=== PATIENT | female | born 1940 | race Caucasian/White ===

== ENCOUNTER 2017-04-30 17:22 | Observation (INO) | payer MEDICARE, OTHER ==
[2017-04-30] MEDS ORDERED: Acetaminophen 325 MG Tab PO PRN (18:15)
[2017-04-30] MEDS ORDERED: 50% Dextrose in Water 50 ML Syringe IVPUSH PRN (18:22)
[2017-04-30] MEDS ORDERED: Metoprolol Tartrate 25 MG Tab PO SCH (18:30)
[2017-04-30] MEDS ORDERED: Insulin Aspart 100 Units/ML 3 ML Pen SUBCUT SCH (18:30)
[2017-04-30 18:57] LABS: CHLORIDE,CL 104 mmol/L (101-111); SODIUM,NA 139 mmol/L (135-145)
[2017-04-30] MEDS: Simvastatin 10 MG Tab PO SCH (23:08)
[2017-04-30] MEDS: Metoprolol Tartrate 25 MG Tab PO SCH (23:35)
--- NOTE | 2017-05-01 00:51 | HP ---
CHIEF COMPLAINT: Irregular heart rate. HISTORY OF PRESENTING ILLNESS: Mrs. Deborah Lujan is a 76-year-old female with medical history significant for hypertension as per the chart, dyslipidemia, type 2 diabetes mellitus, history of diverticulosis, fibrocystic disease of the breast, and renal insufficiency; was evaluated in the primary care office and also by GI doctor, Dr. Beck this afternoon. She has been following with GI consultation for possible iron deficiency anemia and for possible colonoscopy, but lately, the patient was noted to have irregular heart rate suggestive of possible atrial fibrillation, supraventricular tachycardia, and also had Holter monitor placed back in March. Again today while in the office, she was noted to have irregular heart rate with a heart rate of 120, so the patient is being admitted for atrial fibrillation. At this time, the patient denies any complaints of chest pain. No shortness of breath. No abdominal pain. No nausea. No vomiting. No diarrhea. No fevers. No chills. No cough. No sputum in the last few days. She denies any palpitations. She denies any chest pains at this time. The patient denied any history of chest pains on exertion. No history of dyspnea on exertion. No history of orthopnea or paroxysmal nocturnal dyspnea. The patient denied any history of hematemesis, hematochezia, melena, or melanotic stools. Normal bowel and bladder habits otherwise. Lately, the patient has lost her 6 months back, and she is grieving normally. REVIEW OF SYSTEMS: A complete review of system including skin, ear, nose, and throat, cardiovascular system, respiratory system, gastrointestinal system, genitourinary system, hematology, oncology, neurology, allergy, immunology, constitutional were all evaluated and were negative except for the above-said notes. PAST MEDICAL HISTORY: Significant for hypertension, hyperlipidemia, type 2 diabetes mellitus, diverticulosis, fibrocystic disease of the breast, uterovaginal prolapse in the past, renal insufficiency, history of diverticulosis. PAST SURGICAL HISTORY: Significant for endometrial biopsy, colonoscopy, ovary removal in the past. FAMILY HISTORY: Significant for colon cancer in her father. Cancer and diabetes in her sister. Colon cancer and asthma in her brother. SOCIAL HISTORY: The patient had history of smoking tobacco in the past but quit smoking many years back. No history of alcohol intake. ALLERGIES: No known drug allergies. HOME MEDICATIONS: Include: 1. Metformin 850 mg. 2. Simvastatin 40 mg daily. 3. Cozaar 25 mg daily. 4. [place]-3 fatty acids. 5. Aspirin 81 mg daily. 6. Multivitamin tablet daily. PHYSICAL EXAMINATION: Vital Signs: Temperature of 98.3, pulse of 148, blood pressure 146/58, respiratory rate of 20, saturating at 99% on room air. General Appearance: The patient is well oriented to time, place, and person. Follows commands spontaneously. Cardiovascular System: S1, S2 heard with normal intensity. No gallops. Respiratory: Clear to auscultation bilaterally. No wheeze. No crepitations. Abdomen: Soft. Bowel sounds positive. Nontender. No rigidity. Extremities: No edema to bilateral lower extremities. Neurology: No gross focal neurological deficits. LABS: Include total bilirubin 0.7, direct bilirubin 0.2, AST 19, ALT 21, total protein 7.3. Iron 12, ferritin 5, iron saturation 3. Hemoglobin 9.6, hematocrit 30, WBC 7.2, platelet count 179. ASSESSMENT: 1. Atrial fibrillation now in normal sinus rhythm. 2. Hypertension. 3. Hyperlipidemia. 4. Type 2 diabetes mellitus. PLAN: 1. Atrial fibrillation. The patient was noted to have supraventricular tachycardia and possible atrial fibrillation with rapid ventricular response while in the clinic, but after getting admitted to the hospital, switched back to normal sinus rhythm consistent with possible paroxysmal atrial fibrillation. She is noted to have occasional PVCs at this time. The patient noted not to be on any beta-kitty or calcium channel kitty. We will start her on metoprolol 25 mg twice a day for better rate control. We would not initiate any anticoagulation as the workup for iron deficiency anemia has not been completed, unsure if the patient has a GI source of bleed, so we would not start her on active anticoagulation with Coumadin. She is on baby aspirin. We will continue the same. The patient was explained about the diagnostic findings and treatment plans which she understands and verbalized the same. 2. Hypertension. Noted to have elevated blood pressure. We will start her on metoprolol 25 mg twice a day and further titrate the medication. We will closely monitor in the telemetry unit. 3. Type 2 diabetes mellitus. The patient usually takes metformin at home. We will check her fingersticks with each meal. Have her on supplemental scale insulin as needed for additional coverage of her blood glucose. 4. Hyperlipidemia. The patient is currently on Zocor. Continue the same. 5. The patient recently had a 2D echocardiogram on April 24 which showed good ejection fraction of 60% to 65% with grade 1 diastolic dysfunction, and the left atrium is borderline dilated secondary to mild mitral regurgitation which could possibly cause supraventricular tachycardia at this time. Closely follow. 6. Code status. The patient wants to be full code. 7. Discussed with Dr. Beck, transferring physician regarding the plan of care. Reviewed the labs and medications. Reviewed the old charts. Discussed with family members. [facility] /[id number]
[2017-05-01] MEDS: Losartan 25 MG Tab PO SCH (09:32)
[2017-05-01] MEDS: Aspirin 81 MG Tab.EC PO SCH (09:32)
[2017-05-01] MEDS: Metoprolol Tartrate 25 MG Tab PO SCH ×2 (09:32→22:05)
[2017-05-01] MEDS ORDERED: Metoprolol Tartrate 25 MG Tab PO SCH (09:49)
[2017-05-01 10:56] LABS: CHLORIDE,CL 103 mmol/L (101-111); SODIUM,NA 134 mmol/L (135-145)
[2017-05-01] MEDS ORDERED: Metoprolol Tartrate 25 MG Tab PO ONE (11:15)
--- NOTE | 2017-05-01 12:57 | PN ---
DATE: 05/01/2017 SUBJECTIVE: Mrs. Deborah Lujan is a 76-year-old female with medical history significant for hypertension, hyperlipidemia, type 2 diabetes mellitus, and iron- deficiency anemia, admitted to the hospital with episodes of paroxysmal atrial fibrillation with rapid ventricular response. For the last 24 hours, the patient is closely monitored in the telemetry unit. She remained in normal sinus rhythm. We started on metoprolol 25 mg twice a day requiring further dose adjustment of the medications. She denies any chest pain. No shortness of breath. No abdominal pain. No nausea. No vomiting. No diarrhea. No palpitations. REVIEW OF SYSTEMS: Cardiovascular, respiratory, gastrointestinal, neurology, constitutional were all evaluated. PHYSICAL EXAMINATION: Vital Signs: Temperature of 97.4, pulse of 74, blood pressure 164/62, respiratory rate of 16, and saturating at 97% on room air. General Appearance: Patient is well oriented to time, place, and person. Follows commands spontaneously. Cardiovascular System: S1, S2 heard with normal intensity. No gallops. Respiratory System: Clear to auscultation bilaterally. No wheeze. No crepitations. Abdomen: Soft. Bowel sounds positive. Nontender. No rigidity. Extremities: No edema bilateral lower extremities. Neurology: No gross focal neurological deficit. MEDICATIONS: Reviewed. 1. Tylenol 650 mg every 4 hours as needed for pain and fever. 2. Aspirin 81 mg daily. 3. Ciprofloxacin 500 mg twice a day. 4. NovoLog supplemental scale. 5. Cozaar 25 mg daily. 6. Magnesium oxide 500 mg twice a day. 7. Metoprolol 50 mg twice a day, changed from 25 mg twice a day. 8. Zocor 20 mg at bedtime. LABORATORY DATA: Sodium 134, potassium 4.3, chloride 103, bicarb 26, BUN 16, creatinine 0.7, and glucose 216. Urinalysis suggesting large leukocytes, 20-30 wbc's and rare bacteria. Magnesium 1.6. Troponin less than 0.02. INR 1. ASSESSMENT: 1. Paroxysmal atrial fibrillation with rapid ventricular response, now in normal sinus rhythm. 2. Hypertension. 3. Hyperglycemia. 4. Type 2 diabetes mellitus. 5. Hyperlipidemia. PLAN: 1. Atrial fibrillation. The patient was noted to be in paroxysmal atrial fibrillation and rate seems to be well controlled. For now, she is back to normal sinus rhythm. We added metoprolol 25 mg twice a day, increase it to 50 mg twice a day for better control of the blood pressure. She was also noted to have hypomagnesemia requiring magnesium supplement. Closely follow the patient. 2. Hypertension, uncontrolled. The patient noted to have elevated blood pressure. We were titrating her medications. Increase the metoprolol to 50 twice a day. We will closely follow in the telemetry unit. 3. Type 2 diabetes mellitus, uncontrolled. The patient was noted to be on metformin at home. We have her on supplemental scale insulin while here. We will resume the metformin when she is more stable. 4. Hyperlipidemia. Continue with statin for now. 5. Possible discharge in a.m. if she remains hemodynamically stable. The patient is advised to walk around. 6. Iron-deficiency anemia. This will be worked up as an outpatient. The patient is scheduled for possible colonoscope and endoscope, but given her possible supraventricular tachycardia with possible paroxysmal atrial fibrillation and a controlled rate, the patient is being titrated on the medication to optimize her heart rate prior to this procedure. 7. Discussed with family members at bedside. [facility] /[id number]
[2017-05-01] MEDS: Ciprofloxacin 500 MG Tab PO SCH ×2 (13:17→22:04)
[2017-05-01] MEDS: METFORMIN 850 MG PO SCH ×2 (16:58→16:59)
[2017-05-01] MEDS: FISH OIL 1200 MG PO SCH (16:58)
[2017-05-01] MEDS: Insulin Aspart 100 Units/ML 3 ML Pen SUBCUT SCH ×2 (18:15→21:58)
[2017-05-01] MEDS: Simvastatin 10 MG Tab PO SCH (22:05)
[2017-05-02] MEDS: Insulin Aspart 100 Units/ML 3 ML Pen SUBCUT SCH ×2 (08:35→11:57)
[2017-05-02] MEDS: Aspirin 81 MG Tab.EC PO SCH (08:36)
[2017-05-02] MEDS: Losartan 25 MG Tab PO SCH (08:36)
[2017-05-02] MEDS: Metoprolol Tartrate 25 MG Tab PO SCH (08:36)
[2017-05-02] MEDS: Ciprofloxacin 500 MG Tab PO SCH (08:36)
[2017-05-02] MEDS: METFORMIN 850 MG PO SCH ×2 (08:37→11:56)
[2017-05-02] MEDS: FISH OIL 1200 MG PO SCH (08:37)
[2017-05-02 11:38] VITALS: BP 106/89
--- NOTE | 2017-05-02 16:56 | DISCH ---
ADMITTING DIAGNOSIS: Atrial fibrillation with rapid ventricular response. DISCHARGE DIAGNOSES: 1. Paroxysmal atrial fibrillation, now in normal sinus rhythm. 2. Hypertension, uncontrolled. 3. Hypomagnesemia. 4. Possible urinary tract infection. HISTORY OF PRESENTING ILLNESS: Mrs. Deborah Lujan is a 76-year-old female with medical history significant for hypertension, hyperlipidemia, type 2 diabetes mellitus, history of diverticulosis, fibrocystic disease of the breast, was initially evaluated by Dr. Beck for iron-deficiency anemia, and while in the clinic, the patient was noted to have supraventricular tachycardia with possible paroxysmal atrial fibrillation with rapid ventricular response, and so was admitted to the hospital for further evaluation and treatment. After getting admitted to the hospital, the patient was kept on telemetry unit and she remained in normal sinus rhythm during this stay. The patient denied any ongoing chest pains. Her troponins were negative. She was noted to have hypomagnesemia, requiring magnesium oxide supplement. She was also noted to have possible urinary tract infection, so she was empirically started on oral antibiotic with ciprofloxacin. She responded well to the treatment. She was noted to have uncontrolled hypertension, so we started on metoprolol and increased it to 50 mg twice a day, after which her blood pressure was much controlled. She was noted to be on aspirin. We could not start her on active anticoagulation at this juncture as there was suspicion for GI bleed leading to iron-deficiency anemia, so the patient will be further evaluated with a colonoscope and endoscope, and if there is no source of bleeding, then she would be advised to be started on anticoagulation either with Coumadin or the newer agents. She remained hemodynamically stable on this admission. She is discharged home in stable condition. DISCHARGE MEDICATIONS: Include: 1. Aspirin 81 mg daily. 2. Ciprofloxacin 500 mg twice a day for 5 days. 3. Fish oil 1200 mg daily. 4. Cozaar 25 mg daily. 5. Magnesium oxide 500 mg for next 7 days. 6. Metoprolol 50 mg twice a day. 7. Simvastatin 20 mg at bedtime. 8. Metformin 850 mg 3 times a day. PHYSICAL EXAMINATION: Vital Signs: On the day of discharge, vitals; temperature of 98, pulse of 63, blood pressure 150/59, respiratory rate of 20, saturating at 98% on room air. General Appearance: The patient is well oriented to time, place, and person. Follows commands spontaneously. Cardiovascular System: S1, S2 heard with normal intensity. No gallops. Respiratory System: Clear to auscultation bilaterally. No wheeze. No crepitations. Abdomen: Soft. Bowel sounds positive. Nontender. No rigidity. Extremities: No edema in bilateral lower extremities. Neurology: No gross focal neurological deficits. CONDITION ON ADMISSION: Poor. CONDITION ON DISCHARGE: Stable. DISPOSITION: Discharged to home. DIET: Cardiac healthy diet. ACTIVITY: As tolerated. FOLLOWUP: Follow up with primary care physician in the next 1 to 2 weeks of time and to follow with Dr. Beck as scheduled. The patient was explained about changes in her medications. Spent over 35 minutes of time in evaluating and treating this patient and making discharge plans. [facility] /[id number]
== END 2017-05-02 13:15 | disposition home or self-care (01) ==
LOC: UNDOADMOB 17:45 → DL.MS 17:45 → INTOOBSV 17:45 → DL.MS 18:15
PROVIDERS: ADMIT Internal Medicine; ATTEND Internal Medicine
DX: I48.0 Paroxysmal atrial fibrillation (principal); I10 Essential (primary) hypertension; E83.42 Hypomagnesemia; E11.9 Type 2 diabetes mellitus without complications; Z79.82 Long term (current) use of aspirin; Z79.899 Other long term (current) drug therapy; Z79.84 Long term (current) use of oral hypoglycemic drugs; Z98.890 Other specified postprocedural states; Z87.891 Personal history of nicotine dependence
CPT/HCPCS: 36415; 80048; 81001; 82962; 83735; 84100; 84484; 85610; A9270; G0378; G0379; J1815

== ENCOUNTER 2017-05-17 05:19 | Day surgery (SDC) | payer MEDICARE, OTHER ==
[2017-05-17] MEDS ORDERED: Midazolam 1 MG/ML 2 ML SDV IV ONE ×3 (05:20→06:31)
[2017-05-17] MEDS ORDERED: fentaNYL 100 MCG/2 ML SDV IV ONE ×3 (05:20→06:30)
[2017-05-17] MEDS ORDERED: fentaNYL 100 MCG/2 ML SDV ONE (06:14)
[2017-05-17] MEDS ORDERED: Midazolam 1 MG/ML 2 ML SDV ONE (06:14)
[2017-05-17] MEDS ORDERED: Dextrose 5%-0.45% NaCl 1,000 ML IV SCH (06:30)
[2017-05-17] MEDS ORDERED: Sodium Chloride 0.9% 10 ML Syringe FLUSH PRN (06:30)
--- NOTE | 2017-05-17 07:56 | OR ---
DATE: 05/17/2017 PROCEDURES: Esophagogastroduodenoscopy, NBI, APC therapy, and multiple pinch biopsies. INSTRUMENTS USED: GIF-H180 Olympus video panendoscope and APC circumferential probe. PREMEDICATIONS: No oral topical anesthesia used. Fentanyl 100 mcg intravenous and Versed 1.5 mg intravenous. Nasal 2 L O2 cannula. The procedure was done under pulse oximetry, BP recording, and boat cleaner. INDICATION: The patient with unexplained iron-deficiency anemia requiring packed cell transfusions. Esophagogastroduodenoscopy is performed for detection of any active erosive lesions, James esophagus and/or malignancy also under consideration, H. pylori status to be determined, small bowel biopsies to be obtained if indicated, endoscopic hemostasis therapy if needed. PROCEDURE IN DETAIL: The scope was passed with ease. Adequate visualization of the esophagus was made from proximal to distal areas. No upper esophageal lesions identified. No distal esophageal stricture. No uphill or downhill esophageal varices. No Mia-Potts tear. No evidence of erosive esophagitis by [place] criteria. No esophageal polyp or tumor mass identified. [place] columnar epithelium was noted at around 37 cm distal to the oral verge. Four- quadrant biopsies were obtained from the area of Z-line and sent for histopathologic evidence of intestinal metaplasia. No esophageal polyp or tumor mass identified. Small sliding hiatal hernia was noted. No proximal gastric varices noted. Gastric fundus examination with retroflexion showed no polypoid lesions. No gastric ulcer or malignant mass identified. In the mid-gastric body, a small angiodysplastic area was noted without bleeding from it. NBI views were obtained. Photographs were taken. APC therapy was given. Photographs were taken before and after. Duodenal bulb showed no ulcer. Visualized second part of the duodenum was unremarkable. Multiple pinch biopsies were taken from the gastric antrum and proximal body and sent for PyloriTek test for H. pylori and histopathology. No bleeding was noted from any of the visualized areas at the completion of examination. IMPRESSION: 1. Gastric angiodysplasia. 2. Small sliding hiatal hernia. The patient tolerated the procedure well. [facility] /[id number]
[2017-05-17 09:14] VITALS: BP 151/66
== END 2017-05-17 08:56 | disposition home or self-care (01) ==
LOC: DL.ENDO 05:19
PROVIDERS: ATTEND Internal Medicine Gastroenterology
DX: K29.50 Unspecified chronic gastritis without bleeding (principal); K20.9 Esophagitis, unspecified; K44.9 Diaphragmatic hernia without obstruction or gangrene; K31.819 Angiodysplasia of stomach and duodenum without bleeding; I10 Essential (primary) hypertension; E11.9 Type 2 diabetes mellitus without complications; E78.00 Pure hypercholesterolemia, unspecified; E53.8 Deficiency of other specified B group vitamins; Z98.890 Other specified postprocedural states
CPT/HCPCS: 36415; 43239; 85014; 85018; 87077; J2250; J3010; J7042; 88305; 88342

== ENCOUNTER 2017-05-18 06:13 | Day surgery (SDC) | payer MEDICARE, OTHER ==
[~2017-05-18 06:13] MED LIST: Midazolam 1 MG/ML 2 ML SDV ONE; fentaNYL 100 MCG/2 ML SDV ONE
[2017-05-18] MEDS ORDERED: fentaNYL 100 MCG/2 ML SDV IV ONE ×4 (06:14→07:46)
[2017-05-18] MEDS ORDERED: Midazolam 1 MG/ML 2 ML SDV IV ONE ×7 (06:14→07:42)
[2017-05-18] MEDS ORDERED: Dextrose 5%-0.45% NaCl 1,000 ML IV SCH (06:50)
--- NOTE | 2017-05-18 08:31 | OR ---
DATE: 05/18/2017 PROCEDURE: Total colonoscopy, NBI, and multiple pinch biopsies. INSTRUMENT USED: CF-H180AL Olympus video colonoscope. PREMEDICATIONS: Fentanyl 125 mcg intravenous, Versed 4 mg intravenous. Nasal O2 cannula. The procedure was done under pulse oximetry, BP recording, and court monitor. INDICATION: The patient with iron-deficiency anemia, requiring packed cell transfusion. Colonoscopic examination is done for detection of any polypoid lesions and removal, endoscopic hemostasis therapy if needed. DESCRIPTION OF PROCEDURE: Initial rectal exam was unremarkable. Rigid anoscopy was normal. The colonoscope was passed up to the ileocecal area, exam a bit prolonged due to the tortuosity of the colon. Photographs were taken of the cecum showing malignant lesion, NBI views were obtained, multiple pinch biopsies were obtained and sent for histopathology. No bleeding was noted from any of the visualized areas at the commencement of the examination. No stricture. No vascular ectasia. No large isolated ulcerations seen. No evidence of diffuse inflammatory bowel disease in the form of friability, contact bleeding, or ulcerations. Probing the proximal sides of folds and flexures, using adequate distention and clearing up the stool material, withdrawal of the scope was made, cecum to rectum time over 6 minutes. There was large amount of fecal material that had to be aspirated. No bleeding was noted from any of the visualized areas at the completion of examination. IMPRESSION: Cecal adenocarcinoma. The patient tolerated the procedure well. [facility] /[id number]
[2017-05-18 12:29] VITALS: BP 131/74
== END 2017-05-18 10:50 | disposition home or self-care (01) ==
LOC: DL.ENDO 06:13
PROVIDERS: ATTEND Internal Medicine Gastroenterology
DX: C18.0 Malignant neoplasm of cecum (principal); I10 Essential (primary) hypertension; E11.9 Type 2 diabetes mellitus without complications; E78.00 Pure hypercholesterolemia, unspecified; E53.8 Deficiency of other specified B group vitamins; Z98.890 Other specified postprocedural states
CPT/HCPCS: 36415; 45380; 82565; J2250; J3010; J7042; 88305; 88341; 88342

== ENCOUNTER 2021-10-07 07:32 | Emergency (ER) | payer MEDICARE, OTHER ==
[2021-10-07 08:23] VITALS: BP 116/57; PULSE 65
[2021-10-07 09:10] LABS: PTT,PARTIAL THROMBOPLSTIN TIME 26.7 SEC (22.0-34.0)
[2021-10-07 09:14] LABS: ANION GAP 13.2 mEq/L (7-13); CHLORIDE,CL 104 mmol/L (98-107); SODIUM,NA 139 mmol/L (136-145)
[2021-10-07 10:08] LABS: AMPHETAMINES,URINE NEGATIVE (NEGATIVE); BARBITURATES,URINE NEGATIVE (NEGATIVE); BENZODIAZEPINE,URINE NEGATIVE (NEGATIVE); MDMA (ECSTASY), URINE NEGATIVE (NEGATIVE); METHADONE,URINE NEGATIVE (NEGATIVE); METHAMPHETAMINES,URINE NEGATIVE (NEGATIVE); OPIATES,URINE NEGATIVE (NEGATIVE); OXYCODONE,URINE NEGATIVE (NEGATIVE); PHENCYCLIDINE,URINE NEGATIVE (NEGATIVE); TCA,URINE NEGATIVE (NEGATIVE)
== END 2021-10-07 10:45 | disposition home or self-care (01) ==
LOC: DL.ED 07:32
DX: K64.1 Second degree hemorrhoids (principal); I12.9 Hypertensive chronic kidney disease with stage 1 through stage 4 chronic kidney disease, or unspecified chronic kidney disease; E11.22 Type 2 diabetes mellitus with diabetic chronic kidney disease; N18.9 Chronic kidney disease, unspecified; D63.1 Anemia in chronic kidney disease; E78.00 Pure hypercholesterolemia, unspecified; I48.91 Unspecified atrial fibrillation; Z79.82 Long term (current) use of aspirin; Z79.899 Other long term (current) drug therapy
CPT/HCPCS: 36415; 71045; 80053; 80305-QW; 80307; 81001; 82272; 83605; 83880; 84484; 85025; 85610; 85730; 86140; 93005; 99284-25

== ENCOUNTER 2021-12-06 05:21 | Day surgery (SDC) | payer MEDICARE, OTHER ==
[2021-12-06] MEDS ORDERED: fentaNYL 100 MCG/2 ML SDV IV ONE ×2 (05:22→06:32)
[2021-12-06] MEDS ORDERED: Midazolam 1 MG/ML 2 ML SDV IV ONE ×2 (05:22→06:34)
[2021-12-06] MEDS ORDERED: Sodium Chloride 0.9% 10 ML Syringe FLUSH PRN (06:00)
[2021-12-06] MEDS ORDERED: Dextrose 5%-0.45% NaCl 1,000 ML IV SCH ×2 (06:00→07:30)
[2021-12-06] MEDS ORDERED: Sodium Chloride 0.9% 10 ML Syringe FLUSH SCH (06:00)
[2021-12-06] MEDS ORDERED: fentaNYL 100 MCG/2 ML SDV ONE (06:16)
[2021-12-06] MEDS ORDERED: Midazolam 1 MG/ML 2 ML SDV ONE (06:16)
[2021-12-06 16:09] VITALS: BP 97/49; PULSE 81
== END 2021-12-06 08:40 | disposition home or self-care (01) ==
LOC: DL.ENDO 05:21
PROVIDERS: ATTEND Internal Medicine Gastroenterology
DX: C20 Malignant neoplasm of rectum (principal); E78.5 Hyperlipidemia, unspecified; K57.30 Diverticulosis of large intestine without perforation or abscess without bleeding; I48.0 Paroxysmal atrial fibrillation; I12.9 Hypertensive chronic kidney disease with stage 1 through stage 4 chronic kidney disease, or unspecified chronic kidney disease; N60.19 Diffuse cystic mastopathy of unspecified breast; E11.22 Type 2 diabetes mellitus with diabetic chronic kidney disease; N18.9 Chronic kidney disease, unspecified; Z90.49 Acquired absence of other specified parts of digestive tract; Z98.890 Other specified postprocedural states; Z01.812 Encounter for preprocedural laboratory examination; Z20.822 Contact with and (suspected) exposure to COVID-19
CPT/HCPCS: 45380; J2250; J3010; J7042; U0002; 88305; 88341; 88342

== ENCOUNTER 2022-01-14 09:52 | Emergency (ER) | payer MEDICARE, OTHER ==
[2022-01-14 10:28] VITALS: BP 102/52; PULSE 116
[2022-01-14] MEDS ORDERED: Sodium Chloride 0.9% 1,000 ML IV ONE (10:42)
[2022-01-14 11:29] LABS: ANION GAP 18.6 mEq/L (7-13)
== END 2022-01-14 12:26 | disposition home or self-care (01) ==
LOC: DL.ED 09:52
DX: E86.0 Dehydration (principal); I12.9 Hypertensive chronic kidney disease with stage 1 through stage 4 chronic kidney disease, or unspecified chronic kidney disease; E11.22 Type 2 diabetes mellitus with diabetic chronic kidney disease; N18.9 Chronic kidney disease, unspecified; D63.1 Anemia in chronic kidney disease; I48.91 Unspecified atrial fibrillation; E78.00 Pure hypercholesterolemia, unspecified; Z79.899 Other long term (current) drug therapy; Z85.3 Personal history of malignant neoplasm of breast; Z85.038 Personal history of other malignant neoplasm of large intestine
CPT/HCPCS: 36415; 80053; 85025; 96360; 99283; 99284-25; J7030

== ENCOUNTER 2022-01-14 20:05 | Emergency (ER) | payer MEDICARE, OTHER ==
[2022-01-14 20:18] VITALS: BP 72/41; PULSE 81
[2022-01-14 22:35] LABS: ANION GAP 13.5 mEq/L (7-13)
[2022-01-14] MEDS ORDERED: Norepinephrine 4 MG in Dextrose 5% in Water 246 ML IV SCH ×2 (23:45)
[2022-01-14] MEDS ORDERED: Sodium Chloride 0.9% 1,000 ML IV ONE (23:51)
[2022-01-15] MEDS ORDERED: Piperacillin/Tazobactam 3.375 GM in Sodium Chloride 0.9% 100 ML IV ONE (00:06)
== END 2022-01-15 00:45 ==
LOC: DL.ED 20:05
DX: A41.9 Sepsis, unspecified organism (principal); C20 Malignant neoplasm of rectum; D70.1 Agranulocytosis secondary to cancer chemotherapy; T45.1X5A Adverse effect of antineoplastic and immunosuppressive drugs, initial encounter; I95.9 Hypotension, unspecified; I48.0 Paroxysmal atrial fibrillation; E78.00 Pure hypercholesterolemia, unspecified; E11.22 Type 2 diabetes mellitus with diabetic chronic kidney disease; I12.9 Hypertensive chronic kidney disease with stage 1 through stage 4 chronic kidney disease, or unspecified chronic kidney disease; N18.9 Chronic kidney disease, unspecified; Z79.82 Long term (current) use of aspirin; Z79.899 Other long term (current) drug therapy
CPT/HCPCS: 36415; 71045; 80053; 81003; 83735; 85025; 93010; 96365; 96368; 96375; 99284; 99285-25; J2543; J3370; J7030; J7050; J7060